=== PATIENT | male | born 1975 | race American Indian/Alaskan Native ===

== ENCOUNTER 2024-05-30 22:14 | Emergency (ER) | payer MEDICAID, OTHER ==
[2024-05-30] MEDS: Ketorolac 30 MG/ML SDV IM ONE (22:53)
[2024-05-30] MEDS: Clindamycin HCl 150 MG Cap PO ONE (22:54)
== END 2024-05-30 23:00 ==
LOC: VM.ED 22:14
DX: L03.211 Cellulitis of face (principal); K08.89 Other specified disorders of teeth and supporting structures; K06.8 Other specified disorders of gingiva and edentulous alveolar ridge; Z79.899 Other long term (current) drug therapy
CPT/HCPCS: 96372; 99283; 99284; A9270-GY; J1885